=== PATIENT | female | born 1995 | race Hispanic/Latino ===

== ENCOUNTER 2020-03-03 08:35 | Outpatient (CLI) | payer OTHER ==
--- NOTE | 2020-03-03 09:31 | ULT ---
ULTRASOUND OBSTETRICAL COMPLETE: DATE: 03/03/2020 HISTORY: ICD-10: "Z 34.82, encounter for supervision of other normal , second trimester" 24-year-old female FINDINGS: number: [email or web address] lie: Cephalic Maternal cervix: 3.5 cm. Closed. Placenta: Posterior. Low-lying. Amniotic fluid volume: LANETTE = 15 cm heart rate: 144 bpm The following anatomy is visualized, with no evidence of anomalies: Head, cerebellum, lateral ventricles, four-chamber heart, stomach, kidneys, cord insertion, bladder, cervical spine, thoracic spine, lumbar spine, sacrum, nose and lips, upper extremities, lower extremities, and three-vessel cord. biometry: Biparietal diameter (BPD): 5.2 cm 21 w 6 d Head circumference (HC): 18.6 cm 21 w 0 d Abdominal circumference (AC): 16.6 cm 21 w 5 d Femur length (FL): 3.7 cm 21 w 6 d Average ultrasound age (AUA): 21 w 5 d Estimated date of delivery (DOLORES): 07/09/2020 Estimated weight (EFW): 439 g +/- 64 g IMPRESSION: 1) Live 2nd trimester intrauterine gestation. 2) Estimated gestational age of 21 weeks, 5 days 3) cephalic lie. 4) no anatomic abnormality identified.
== END 2020-03-03 08:36 | disposition home or self-care (01) ==
LOC: BICULT 08:35
PROVIDERS: ATTEND Family Medicine
DX: Z34.82 Encounter for supervision of other normal pregnancy, second trimester (principal); Z3A.21 21 weeks gestation of pregnancy
CPT/HCPCS: 76805

== ENCOUNTER 2020-06-21 11:13 | Day surgery (SDC) | payer OTHER ==
--- NOTE | 2020-06-22 10:11 | SS ---
DATE OF ADMISSION: 06/21/2020 DATE OF DISCHARGE: 06/21/2020 REGULAR PHYSICIAN: Kobe Oliva MD EVALUATING PHYSICIAN: Yevgeniy Orellana MD CHIEF COMPLAINT: Contractions. HISTORY OF PRESENT ILLNESS: Ms. Teran is a 25-year-old G2, P1, with an estimated date of confinement of 07/11/2020, who presents complaining of contractions at home every 3 to 7 minutes. She denies ruptured membranes or vaginal bleeding. Her care has been with Dr. Oliva without reported complications. PAST OBSTETRICAL HISTORY: Includes one vaginal delivery at term, 7 pounds 12 ounces. PAST MEDICAL HISTORY: None. PAST SURGICAL HISTORY: None. CURRENT MEDICATIONS: 1. vitamins. 2. Iron. ALLERGIES: NO KNOWN ALLERGIES. SOCIAL HISTORY: Denies tobacco, alcohol, or drug use. FAMILY HISTORY: Unremarkable. REVIEW OF SYSTEMS: Denies nausea, vomiting, fever, chills, ruptured membranes, or vaginal bleeding. PHYSICAL EXAMINATION: VITAL SIGNS: In triage, her vital signs are stable. She is afebrile. GENERAL: She is pleasant. She appears comfortable. ABDOMEN: Soft, nontender, and gravid. PELVIC: Pelvic exam by the labor nurse is 3, 70% effaced with the cervix posterior and a vertex presenting. heart rate tracing is stable. No decelerations are seen. Uterine contractions are seen every 5 minutes. The patient is observed over 2 hours and no cervical change noted. ASSESSMENT: 1. A 37-1/7-week intrauterine . 2. No evidence of active labor at this time. PLAN: The patient will be dismissed to home. Labor precautions were reviewed with her in detail. She will follow up for her next scheduled appointment with Dr. Oliva within the week. Job ID: [id number] [facility]
== END 2020-06-21 14:55 | disposition home or self-care (01) ==
LOC: L&D/OP 11:13
PROVIDERS: ATTEND Family Medicine
DX: O47.1 False labor at or after 37 completed weeks of gestation (principal); Z3A.37 37 weeks gestation of pregnancy
CPT/HCPCS: 99282

== ENCOUNTER 2020-06-22 09:14 | Inpatient (IN) | payer OTHER ==
[2020-06-22 09:46] VITALS: BMI 32.2
[2020-06-22] MEDS ORDERED: Butorphanol Tartrate 1 MG/ML VIAL SLOW IVP PRN (09:52)
[2020-06-22] MEDS ORDERED: hydrALAZINE 20 MG/ML VIAL SLOW IVP PRN ×2 (09:52→23:15)
[2020-06-22] MEDS ORDERED: Misoprostol 200 MCG TAB PR PRN (09:52)
[2020-06-22] MEDS ORDERED: Acetaminophen 500 MG TAB PO PRN (09:52)
[2020-06-22] MEDS ORDERED: Diphenoxylate HCl/Atropine Tablet PO PRN ×2 (09:52)
[2020-06-22] MEDS ORDERED: Lidocaine 1% (PF) 30 ML VIAL SC PRN (09:52)
[2020-06-22] MEDS ORDERED: HYDROcodone/Acetaminophen 5/325 mg Tablet PO PRN ×4 (09:52→23:15)
[2020-06-22] MEDS ORDERED: Ibuprofen 800 MG TAB PO PRN (09:52)
[2020-06-22] MEDS ORDERED: Ondansetron PF 4 MG/2 ML Vial IVP PRN ×3 (09:52→23:15)
[2020-06-22] MEDS ORDERED: NS / Oxytocin 40 units/1000ml 1,000 ML IV PRN (09:52)
[2020-06-22] MEDS ORDERED: Methylergonovine 0.2 MG/ML VIAL IM PRN (09:52)
[2020-06-22] MEDS ORDERED: Promethazine HCl 25 MG/ML VIAL IM PRN ×3 (09:52→23:15)
[2020-06-22] MEDS ORDERED: Carboprost 250 MCG/ML AMP IM PRN (09:52)
[2020-06-22] MEDS: Lactated Ringer's 1,000 ML IV SCH ×2 (10:02→16:00)
[2020-06-22 10:19] LABS: Hemoglobin 11.7 g/dL (12.0-16.0); Mean Corpuscular HGB CONC 32.4 g/dL (32.0-36.0); Mean Corpuscular Hemoglobin 27.8 pg (27.0-31.0); Mean Corpuscular Volume 85.7 fL (78.0-98.0); Mean Platelet Volume 9.3 fL (7.4-10.4); Platelet Count 180 thou/uL (130-400); RBC Distribution Width 18.7 % (11.5-14.5); Red Blood Cell (RBC) Count 4.21 mill/uL (4.20-5.40)
[2020-06-22] MEDS ORDERED: Bupivacaine 0.5% 20 ML, fentaNYL Citrate/PF 400 MCG in Sodium Chloride 0.9% 72 ML EPIDURAL SCH (10:45)
[2020-06-22] MEDS ORDERED: DISCONTINUE ALL PREVIOUS NARCOTICS FS SCH (10:45)
[2020-06-22 11:00] LABS: Syphilis Antibody Nonreactive (Nonreactive); Syphilis Antibody Index 0.02 S/CO (<1.00 Non-Reactive)
[2020-06-22 11:07] LABS: HBSAg Index 0.19 S/CO (0-0.99); Hep B Surf Ag Non-Reactive S/CO (NonReactive)
[2020-06-22] MEDS ORDERED: Lactated Ringer's 500 ML IV PRN (11:07)
[2020-06-22] MEDS ORDERED: diphenhydrAMINE 50 MG/ML VIAL IVP PRN (11:07)
[2020-06-22] MEDS ORDERED: ePHEDrine 50 MG/ML VIAL SLOW IVP PRN (11:07)
[2020-06-22] MEDS ORDERED: Acetaminophen 325 MG TAB PO PRN (11:07)
[2020-06-22] MEDS ORDERED: Naloxone HCl 0.4 mg/ml Vial IVP PRN ×2 (11:07)
[2020-06-22] MEDS ORDERED: Bupivacaine HCl 0.25%/Epi 0.0005/PF 10 ML VIAL FS ONE (11:12)
[2020-06-22] MEDS ORDERED: Sodium Chloride 0.9% (PF) 10 ML VIAL ONE (11:12)
[2020-06-22] MEDS ORDERED: Fentanyl 4 mcg/Bupivacaine 0.1% Cassette 100 ML EPIDURAL SCH (11:15)
[2020-06-22] MEDS ORDERED: Communication Order-Pharmacy FS SCH (11:15)
[2020-06-22] MEDS ORDERED: NS w/ Oxytocin 30 units 500 ML ONE (15:30)
[2020-06-22] MEDS ORDERED: NS w/ Oxytocin 30 units 500 ML IVPB SCH (16:30)
[2020-06-22 21:06] LABS: Base Excess (BEa) -6.6 mEq/L (-2.0 to +3.0)
[2020-06-22 21:10] LABS: Actual Bicarbonate (HCO3v) 22 mEq/L (22-28); Base Excess -3.7 mEq/L (-2.0 to +3.0); pH (Cord, venous) 7.35 (7.32-7.43)
[2020-06-22 22:49] LABS: SARS-CoV-2 MS2 Positive; SARS-CoV-2 N Gene Negative; SARS-CoV-2 S Gene Negative; SARS-CoV-2 by NAA Not Detected (NotDetected); SARS-CoV-2 orf1ab Negative
[2020-06-22] MEDS ORDERED: diphenhydrAMINE 25 MG CAP PO PRN (23:15)
[2020-06-22] MEDS ORDERED: NS / Oxytocin 40 units/1000ml 1,000 ML IV SCH (23:15)
[2020-06-22] MEDS ORDERED: Lanolin Ointment 7 GM TUBE TOP PRN (23:15)
[2020-06-22] MEDS ORDERED: Milk Of Magnesia 30 ML UDCUP PO PRN (23:15)
[2020-06-22] MEDS ORDERED: Bisacodyl 10 MG SUPP PR PRN (23:15)
[2020-06-22] MEDS ORDERED: Ibuprofen 800 MG TAB PO SCH (23:30)
[2020-06-23] MEDS ORDERED: Ibuprofen 800 MG TAB PO SCH (06:00)
[2020-06-23] MEDS ORDERED: Ferrous Sulfate 325 MG TAB PO SCH (08:00)
[2020-06-23] MEDS ORDERED: Prenatal Vitamin 1 TAB PO SCH (09:00)
[2020-06-23] MEDS ORDERED: Docusate Calcium (SURFAK) 240 MG CAP PO SCH (09:00)
[2020-06-23] MEDS ORDERED: Adacel (T-DAP) 0.5 ML SYRINGE IM ONE (09:00)
[2020-06-23 12:33] VITALS: BP 129/75; TEMP 98.3
== END 2020-06-23 15:45 | disposition home or self-care (01) | DRG 807 ==
LOC: L&D/OP 09:14 → L&D 09:53 → 3SW 06-23 00:48 → L&D 06-23 01:35 → 3SW 06-23 11:00
PROVIDERS: ADMIT Obstetrics & Gynecology; ATTEND Obstetrics & Gynecology
PROC: 10E0XZZ Delivery of Products of Conception, External Approach (ICD-10-PCS; principal; 2020-06-22)
PROC: 0W8NXZZ Division of Female Perineum, External Approach (ICD-10-PCS; 2020-06-22)
DX: O66.0 Obstructed labor due to shoulder dystocia (principal); Z37.0 Single live birth; Z3A.37 37 weeks gestation of pregnancy; Z20.828 Contact with and (suspected) exposure to other viral communicable diseases
CPT/HCPCS: 36415; 51702; 82805; 85027; 86780; 86850; 86900; 86901; 87340; 87635; 99282; 99285; J2001; J2405; J2590; U0003

== ENCOUNTER 2022-01-26 10:11 | Emergency (ER) | payer BC, OTHER ==
[2022-01-26 10:51] LABS: #Basophils 0.1 thou/uL (0.0-0.2); #Lymphocytes 2.3 thou/uL (1.20-3.40); #Monocytes 0.3 thou/uL (0.11-0.59); #Neutrophils 7.8 thou/uL (1.40-6.50); %Basophils 0.9 % (0.0-1.0); %Eosinophils 0.5 % (0.0-10.0); %Lymphocytes 21.7 % (21.0-51.0); %Monocytes 3.2 % (0.0-10.0); %Neutrophils 73.8 % (42.0-75.0); Hemoglobin 14.9 g/dL (12.0-16.0); Mean Corpuscular HGB CONC 32.5 g/dL (32.0-36.0); Mean Corpuscular Hemoglobin 28.7 pg (27.0-31.0); Mean Corpuscular Volume 88.4 fL (78.0-98.0); Platelet Count 295 thou/uL (130-400); RBC Distribution Width 11.8 % (11.5-14.5); White Blood Cell (WBC) Count 10.6 thou/uL (4.8-10.8)
[2022-01-26 11:08] LABS: BHCG - Serum POSITIVE (NEGATIVE); Pregs Control Background? CLEAR/WHITE (CLR/WHITE); Pregs Control Bar Appear? YES (CONTROL BAR)
[2022-01-26 11:09] LABS: ALT (SGPT) 10 U/L (8-55); AST (SGOT) 15 U/L (5-34); Albumin 5.1 g/dL (3.5-5.0); Alkaline Phosphatase 78 U/L (40-110); Anion Gap 13 mmol/L (10-20); BUN (Urea Nitrogen) 11 mg/dL (7.0-18.7); Bilirubin, Total 0.8 mg/dL (0.2-1.2); Calc. Creatinine Clearance 0 mL/min (70-130); Calcium 9.8 mg/dL (7.8-10.44); Carbon Dioxide 26 mmol/L (22-29); Chloride 103 mmol/L (98-107); Estimated GFR 114; Globulin 3.6 g/dL (2.4-3.5); Glucose 97 mg/dL (70-105); Lipase 16 U/L (8-78); Potassium 3.6 mmol/L (3.5-5.1); Protein, Total 8.7 g/dL (6.0-8.3); Sodium 138 mmol/L (136-145)
[2022-01-26 11:34] LABS: Bacteria/HPF None Seen HPF (None Seen); Bilirubin Negative (Negative); Blood, Urine 3+ (Negative); Clarity Clear (Clear); Glucose, Urine (Dipstick) Normal (Negative); Ketone, Urine Negative (Negative); Leukocyte Negative Leu/uL (Negative); Nitrite Negative (Negative); Protein, Urine (Dipstick) 10 mg/dL (Neg-Trace); RBC/HPF 21-50 HPF (0-3); Specific Gravity, Urine 1.028 (1.002-1.036); Squamous Epithelial 0-3 HPF (0-3); Urobilinogen Normal mg/dL (Less than 2); WBC/HPF 0-3 HPF (0-3)
== END 2022-01-26 12:38 | disposition home or self-care (01) ==
LOC: ERS 10:11
DX: O20.0 Threatened abortion (principal); Z3A.01 Less than 8 weeks gestation of pregnancy
CPT/HCPCS: 76856; 80053; 81003; 81015; 83690; 84702; 84703; 85025; 86900; 86901

== ENCOUNTER 2022-10-30 12:11 | Outpatient (CLI) | payer OTHER | END 2022-10-30 12:12 | disposition home or self-care (01) | LOC: BICULT 12:11 | PROVIDERS: ATTEND Family Medicine | DX: Z34.82 Encounter for supervision of other normal pregnancy, second trimester (principal); Z3A.22 22 weeks gestation of pregnancy | CPT/HCPCS: 76805 ==